=== PATIENT | female | born 1955 | race Caucasian/White ===

== ENCOUNTER → 2021-09-03 | Outpatient (CLI) | payer MEDICAID | LOC: CARD 11:00 | PROVIDERS: ATTEND Internal Medicine Hematology & Oncology | DX: Z91.89 Other specified personal risk factors, not elsewhere classified (principal) | CPT/HCPCS: 93308 ==

== ENCOUNTER → 2022-03-26 | Outpatient (CLI) | payer MEDICAID | LOC: CARD 09:37 | PROVIDERS: ATTEND Internal Medicine Hematology & Oncology | DX: Z51.11 Encounter for antineoplastic chemotherapy (principal); C50.919 Malignant neoplasm of unspecified site of unspecified female breast; Z91.89 Other specified personal risk factors, not elsewhere classified | CPT/HCPCS: 93308 ==